=== PATIENT | male | born 1990 | race Caucasian/White ===

== ENCOUNTER 2021-06-14 13:39 | Emergency (ER) | payer OTHER ==
--- NOTE | 2021-06-14 19:58 | ED ---
General Adult HPI - General Chief complaint: Upper Respiratory Infection Stated complaint: Congestion Time Seen by Provider: 06/14/21 19:13 Source: patient Mode of arrival: ambulatory Limitations: no limitations - History of Present Illness Initial comments: 31-year-old male presents to the emergency room for a chief complaint of cough. Patient states he has had a cough and congestion for about 5 days now. He did have fevers and chills as well. Patient states all his symptoms are improving. However he tried to go back to work and he wanted him to get a COVID-19 test. Patient denies shortness of breath or chest pain. States he would not have come of his work.Patient has no other complaints at this time including shortness of breath, chest pain, abdominal pain, nausea or vomiting, headache, or visual changes. - Related Data Allergies Allergy/AdvReac Type Severity Reaction Status Date / Time diphenhydramine Allergy Unknown Verified 06/14/21 15:58 [From Cam] Review of Systems ROS Statement: Those systems with pertinent positive or pertinent negative responses have been documented in the HPI. ROS Other: All systems not noted in ROS Statement are negative. Past Medical History Past Medical History: No Reported History History of Any Multi-Drug Resistant Organisms: None Reported Past Surgical History: Adenoidectomy Past Psychological History: No Psychological Hx Reported Smoking Status: Former smoker Past Alcohol Use History: None Reported Past Drug Use History: None Reported General Exam Limitations: no limitations General appearance: alert, in no apparent distress Head exam: Present: atraumatic Eye exam: Present: normal appearance, PERRL, EOMI. Absent: scleral icterus, conjunctival injection ENT exam: Present: normal exam, mucous membranes moist Neck exam: Present: normal inspection, full ROM. Absent: tenderness Respiratory exam: Present: normal lung sounds bilaterally. Absent: respiratory distress, wheezes Cardiovascular Exam: Present: regular rate, normal rhythm, normal heart sounds GI/Abdominal exam: Present: soft, normal bowel sounds. Absent: distended, tenderness Course Vital Signs 06/14/21 06/14/21 15:55 19:42 Temperature 99.5 F Pulse Rate 106 H Respiratory 16 18 Rate Blood Pressure 149/91 O2 Sat by Pulse 98 Oximetry Medical Decision Making - Medical Decision Making Vitals are stable. Patient is 98% on room air. He did test positive for COVID- 19. I did have a lengthy discussion about antibodies with him. Patient states that he is feeling almost back to normal and he does not think these are necessary. He is only here because his employer wanted him to be seen. Patient will be discharged home to follow up with primary care. I did give him a work note for quarantine as he needs to do this until June 20. - Lab Data Lab Results 06/14/21 Range/Units 16:02 Coronavirus (PCR) Detected A (Not Detectd) Disposition Clinical Impression: COVID-19 Disposition: HOME SELF-CARE Condition: Good Instructions (If sedation given, give patient instructions): Coronavirus Disease 2019 (COVID-19) Additional Instructions: Take Motrin and Tylenol for pain. Drink plenty of fluids. Follow-up with your doctor. Return to the emergency room for any worsening symptoms. You must quarantine until 06/20/2021. Is patient prescribed a controlled substance at d/c from ED?: No Referrals: Susan Carlson MD [REFERRING] - 1-2 days Time of Disposition: 19:57
[2021-06-14 20:45] VITALS: BP 110/78; PULSE 67; RESP 16; TEMP 98.1
== END 2021-06-14 20:45 | disposition home or self-care (01) ==
LOC: EC 13:39
DX: U07.1 COVID-19 (principal); Z88.1 Allergy status to other antibiotic agents; Z87.891 Personal history of nicotine dependence
CPT/HCPCS: 87635; 99283

== ENCOUNTER → 2022-05-10 | Outpatient (CLI) | payer OTHER ==
--- NOTE | 2022-05-10 11:29 | XR ---
EXAMINATION TYPE: XR chest 2V DATE OF EXAM: 05/10/2022 COMPARISON: NONE HISTORY: Chest pain TECHNIQUE: Frontal and lateral views of the chest are obtained. FINDINGS: There is no focal air space opacity. No evidence for pneumothorax. No pleural effusion. The cardiac silhouette size is within normal limits. The osseous structures are grossly intact. IMPRESSION: 1. No acute cardiopulmonary process.
== END | disposition home or self-care (01) ==
LOC: RADXRMAIN 11:05
PROVIDERS: ATTEND Internal Medicine
DX: R07.9 Chest pain, unspecified (principal); R76.11 Nonspecific reaction to tuberculin skin test without active tuberculosis
CPT/HCPCS: 71046